=== PATIENT | male | born 1975 | race American Indian/Alaskan Native ===

== ENCOUNTER 2017-06-23 13:41 | Emergency (ER) | payer SELFPAY ==
[2017-06-23] MEDS ORDERED: ZOFRAN ODT PO ONE (16:13)
--- NOTE | 2017-06-23 16:13 | Emergency Department Report ---
Blank Doc - Documentation Documentation: Patient is a 42-year-old male presents with nausea and vomiting patient states he has not been able to take anything by mouth for last 3 days I will get blood work and I'll give patient Zofran and I'll reevaluate.
[2017-06-23 16:36] LABS: Basophils % (Auto) 0.6 % (0.0-1.8); Eosinophils # (Auto) 0.1 K/mm3 (0.0-0.4); Eosinophils % (Auto) 1.4 % (0.0-4.3); Hematocrit 46.5 % (35.5-45.6); Hemoglobin 15.3 gm/dl (11.8-15.2); Lymphocytes % (Auto) 20.6 % (13.4-35.0); Mean Corpuscular HGB Conc 33 % (32-34); Mean Corpuscular Hemoglobin 30 pg (28-32); Mean Corpuscular Volume 90 fl (84-94); Monocytes # (Auto) 0.6 K/mm3 (0.0-0.8); Monocytes % (Auto) 11.5 % (0.0-7.3); Platelet Count 301 K/mm3 (140-440); Red Blood Count 5.18 M/mm3 (3.65-5.03); Red Cell Distribution Width 13.3 % (13.2-15.2)
[2017-06-23 16:52] LABS: Alanine Aminotransferase 10 units/L (7-56); Albumin 3.3 g/dL (3.9-5); BUN/Creatinine Ratio 4; Blood Urea Nitrogen 3 mg/dL (9-20); Calcium 8.5 mg/dL (8.4-10.2); Hemolysis Index 34; Lipase 19 units/L (13-60)
[2017-06-23] MEDS ORDERED: DECADRON IM ONE (17:02)
[2017-06-23] MEDS ORDERED: PROVENTIL IH ONE (17:02)
--- NOTE | 2017-06-23 17:08 | Emergency Department Report ---
Minor Respiratory - HPI Chief Complaint: Upper Respiratory Infection Stated Complaint: FEVER/WEAKNESS Time Seen by Provider: 06/23/17 16:59 Duration: 2 Days Pain Location: Facial, Throat, Nose, Chest Severity: moderate Minor Respiratory: Yes Sore Throat, Yes Able to Tolerate Fluids, Yes Cough, No Rhinorrhea, No Ear Pain, No Sick Contacts, No Hemoptysis, No Chest Pain, No Shortness of Breath, No Fever ED Review of Systems ROS: Stated complaint: FEVER/WEAKNESS Other details as noted in HPI Constitutional: no symptoms reported, chills ENT: throat pain Respiratory: cough ED Past Medical Hx - Past Medical History Previous Medical History?: No - Surgical History Past Surgical History?: No - Social History Smoking Status: Current Every Day Smoker Substance Use Type: None - Medications Home Medications: Home Medications Medication Instructions Recorded Confirmed Last Taken Type Amoxicillin 500 mg PO BID #20 capsule 06/23/17 Unknown Rx Benzonatate [Tessalon Perles] 100 mg PO Q8HR PRN #20 capsule 06/23/17 Unknown Rx Fluticasone [Flonase] 1 spray NS QDAY #1 bottle 06/23/17 Unknown Rx predniSONE [Deltasone] 20 mg PO DAILY #5 tablet 06/23/17 Unknown Rx Minor Respiratory Exam - Exam General: Vital signs noted. No distress. Alert and acting appropriately. HEENT: Yes Pharyngeal Erythema, Yes Moist Mucous Membranes, Yes Frontal Tenderness, Yes Maxillary Tenderness, No Pharyngeal Exudates, No Rhinorrhea, No Conjuctival Injection Ear: Neither TM Bulge, Neither TM Erythema, Neither EAC Pain, Neither EAC Discharge Neck: Yes Supple, No Adenopathy Lungs: Yes Good Air Exchange, Yes Wheezes, Yes Cough, No Ronchi, No Stridor, No Labored Respirations, No Retractions, No Use of Accessory Muscles, No Other Abnormal Lung Sounds Heart: Yes Regular, No Murmur Abdomen: Yes Normal Bowel Sounds, No Tenderness, No Peritoneal Signs Skin: No Rash, No Edema Neurologic: Alert and oriented, no deficits. Musculoskeletal: Unremarkable. ED Course Vital Signs 06/23/17 14:00 Temperature 98.2 F Pulse Rate 99 H Respiratory 20 Rate Blood Pressure 124/92 O2 Sat by Pulse 98 Oximetry ED Medical Decision Making - Lab Data Result diagrams: 06/23/17 16:22 06/23/17 16:22 - Medical Decision Making SEE NOTE - Differential Diagnosis URTI Critical care attestation.: If time is entered above; I have spent that time in minutes in the direct care of this critically ill patient, excluding procedure time. ED Disposition Clinical Impression: URTI (acute upper respiratory infection), Sinusitis Disposition: TO HOME OR SELFCARE Is pt being admited?: No Does the pt Need Aspirin: No Condition: Stable Instructions: Sinusitis (ED), Upper Respiratory Infection (ED) Additional Instructions: REST HYDRATE WELL MEDS ORDERED TODAY MOTRIN OR TYLENOL FOR FEVER OR PAIN FOLLOW UP WITH PCP NEXT WEEK Referrals: PRIMARY CARE, [Primary Care Provider] - [facility] Days [facility] - [facility]-5 Days Time of Disposition: 17:05
[2017-06-23 17:43] VITALS: BP 140/90
== END 2017-06-23 17:35 | disposition home or self-care (01) ==
LOC: ED 13:41
DX: J06.9 Acute upper respiratory infection, unspecified (principal); J32.1 Chronic frontal sinusitis; J32.0 Chronic maxillary sinusitis; F17.200 Nicotine dependence, unspecified, uncomplicated
CPT/HCPCS: 36415; 80053; 83690; 85025; 96372; 99283; J1100; Q0162

== ENCOUNTER 2017-09-26 08:40 | Emergency (ER) | payer SELFPAY | END 2017-09-26 09:45 | disposition left against medical advice (07) | LOC: ED 08:40 | DX: M79.601 Pain in right arm (principal); Z53.21 Procedure and treatment not carried out due to patient leaving prior to being seen by health care provider ==

== ENCOUNTER 2018-12-31 03:36 | Emergency (ER) | payer SELFPAY ==
[2018-12-31 03:45] VITALS: BP 118/89
[2018-12-31 04:09] LABS: Basophils # (Auto) 0.1 K/mm3 (0.0-0.1); Basophils % (Auto) 0.7 % (0.0-1.8); Eosinophils % (Auto) 0.1 % (0.0-4.3); Hematocrit 44.4 % (35.5-45.6); Lymphocytes # (Auto) 2.2 K/mm3 (1.2-5.4); Lymphocytes % (Auto) 16.7 % (13.4-35.0); Mean Corpuscular HGB Conc 34 % (32-34); Mean Corpuscular Volume 90 fl (84-94); Monocytes # (Auto) 0.7 K/mm3 (0.0-0.8); Monocytes % (Auto) 5.2 % (0.0-7.3); Platelet Count 267 K/mm3 (140-440); Red Blood Count 4.92 M/mm3 (3.65-5.03); Red Cell Distribution Width 13.9 % (13.2-15.2)
[2018-12-31 04:54] LABS: Alanine Aminotransferase 79 units/L (7-56); Albumin 4.2 g/dL (3.9-5); BUN/Creatinine Ratio 7; Blood Urea Nitrogen 6 mg/dL (9-20); Calcium 8.9 mg/dL (8.4-10.2); Hemolysis Index 25
--- NOTE | 2018-12-31 07:54 | Emergency Department Report ---
ED General Adult HPI - General Chief complaint: Extremity Injury, Lower Stated complaint: PAIN IN RIGHT LEG Time Seen by Provider: 12/31/18 07:22 Source: patient Mode of arrival: Ambulatory Limitations: No Limitations - History of Present Illness Initial comments: This is a 43-year-old male with no prior medical history of any conditions are presents to ED complaining of right lateral lower leg pain 1 week. Patient states that he woke up one morning with a serrated female slight throbbing pain in his right lower leg. Patient states that he did not sustain any injuries or trauma to the leg. Patient denies prolonged standing or traveling. Patient states has been taken aspirin and Aleve for pain with no major relief. He denies fevers/chills/nausea vomiting, chest pain, shortness of breath. He denies taking any medications or having any allergies. He denies any difficulty walking ability to walk on loss of sensation - Related Data Previous Rx's Medication Instructions Recorded Last Taken Type Amoxicillin 500 mg PO BID #20 capsule 06/23/17 Unknown Rx Benzonatate [Tessalon Perles] 100 mg PO Q8HR PRN #20 capsule 06/23/17 Unknown Rx Fluticasone [Flonase] 1 spray NS QDAY #1 bottle 06/23/17 Unknown Rx predniSONE [Deltasone] 20 mg PO DAILY #5 tablet 06/23/17 Unknown Rx Ibuprofen [Motrin] 800 mg PO Q8HR #30 tablet 12/31/18 Unknown Rx methOCARBAMOL [Robaxin TAB] 500 mg PO BID #20 tab 12/31/18 Unknown Rx Allergies Allergy/AdvReac Type Severity Reaction Status Date / Time No Known Allergies Allergy Unverified 06/23/17 14:00 ED Review of Systems ROS: Stated complaint: PAIN IN RIGHT LEG Other details as noted in HPI Comment: All other systems reviewed and negative ED Past Medical Hx - Past Medical History Previous Medical History?: No - Surgical History Past Surgical History?: No - Social History Smoking Status: Current Every Day Smoker - Medications Home Medications: Home Medications Medication Instructions Recorded Confirmed Last Taken Type Amoxicillin 500 mg PO BID #20 capsule 06/23/17 Unknown Rx Benzonatate [Tessalon Perles] 100 mg PO Q8HR PRN #20 capsule 06/23/17 Unknown Rx Fluticasone [Flonase] 1 spray NS QDAY #1 bottle 06/23/17 Unknown Rx predniSONE [Deltasone] 20 mg PO DAILY #5 tablet 06/23/17 Unknown Rx Ibuprofen [Motrin] 800 mg PO Q8HR #30 tablet 12/31/18 Unknown Rx methOCARBAMOL [Robaxin TAB] 500 mg PO BID #20 tab 12/31/18 Unknown Rx ED Physical Exam - General Limitations: No Limitations General appearance: alert, in no apparent distress - Head Head exam: Present: atraumatic, normocephalic - Eye Eye exam: Present: normal appearance - ENT ENT exam: Present: mucous membranes moist - Neck Neck exam: Present: normal inspection - Respiratory Respiratory exam: Present: normal lung sounds bilaterally. Absent: respiratory distress - Cardiovascular Cardiovascular Exam: Present: regular rate, normal rhythm. Absent: systolic murmur, diastolic murmur, rubs, gallop - GI/Abdominal GI/Abdominal exam: Present: soft, normal bowel sounds - Rectal Rectal exam: Present: deferred - Extremities Exam Extremities exam: Present: normal inspection, full ROM, other (no old Alison, swelling, redness to the lower extremities bilaterally). Absent: tenderness (to palpation right calf, ankle or knee), joint swelling, calf tenderness - Back Exam Back exam: Present: normal inspection, full ROM - Neurological Exam Neurological exam: Present: alert, oriented X3 - Psychiatric Psychiatric exam: Present: normal affect, normal mood - Skin Skin exam: Present: warm, dry, intact, normal color. Absent: rash ED Course Vital Signs 12/31/18 03:43 Temperature 97.7 F Pulse Rate 112 H Respiratory 18 Rate Blood Pressure 118/89 O2 Sat by Pulse 97 Oximetry ED Medical Decision Making - Lab Data Result diagrams: 12/31/18 03:52 12/31/18 03:52 - Medical Decision Making 43-year-old male presents with a myalgia the lower leg. Negative D dimer. Labs within normal limits. Incidental finding for mildly elevated AST ALT and mild leukocytosis. Discussed this with the patient and discussed with him the need to possibly follow up with a head charger in the future. Patient denies abdominal pain or any abdominal complaints. Vital signs are normal patient is in no acute distress. discuss follow-up with primary care physician as well. Patient is ambulatory without any problems. There was no neurological deficit Critical care attestation.: If time is entered above; I have spent that time in minutes in the direct care of this critically ill patient, excluding procedure time. ED Disposition Clinical Impression: Myalgia, Muscle strain, lower leg Disposition: DC- TO HOME OR SELFCARE Is pt being admited?: No Does the pt Need Aspirin: No Condition: Stable Instructions: Musculoskeletal Pain (ED), Trigger Point Pain (ED) Additional Instructions: Make sure to follow up with the primary care physician as discussed. Take all your medications as you've been prescribed. If you have any worsening symptoms or develop new symptoms please return to ED immediately. Prescriptions: Ibuprofen [Motrin] 800 mg PO Q8HR #30 tablet methOCARBAMOL [Robaxin TAB] 500 mg PO BID #20 tab Referrals: [facility] MD AMADA [Primary Care Provider] - 3-5 Days [facility] [Outside] - 3-5 Days [facility] [Outside] - 3-5 Days JENNIFER FERNANDEZ MD [Staff Physician] - 3-5 Days Forms: Work/School Release Form Time of Disposition: 07:56
== END 2018-12-31 08:08 | disposition home or self-care (01) ==
LOC: ED 03:36
DX: S86.912A Strain of unspecified muscle(s) and tendon(s) at lower leg level, left leg, initial encounter (principal); F17.200 Nicotine dependence, unspecified, uncomplicated; Z79.899 Other long term (current) drug therapy; X58.XXXA Exposure to other specified factors, initial encounter; Y93.89 Activity, other specified; Y92.89 Other specified places as the place of occurrence of the external cause; Y99.8 Other external cause status
CPT/HCPCS: 36415; 80053; 85025; 85379

== ENCOUNTER 2019-04-03 05:31 | Emergency (ER) | payer SELFPAY ==
[2019-04-03 05:39] VITALS: BP 131/84
--- NOTE | 2019-04-03 08:18 | XRay Report ---
XR knee 3V RT INDICATION / CLINICAL INFORMATION: pain to right lateral. COMPARISON: None available. FINDINGS: BONES/JOINT(S): No acute fracture or subluxation. No significant degenerative changes. 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 There is also a small osteochondroma arising from the medial aspect of the distal fem oral diametaphysis without appreciable associated soft tissue mass. SOFT TISSUES: No significant abnormality. ADDITIONAL FINDINGS: None. Signer Name: Earl Lazo MD Signed: 04/03/2019 8:14 AM Workstation Name: [email or web address]
--- NOTE | 2019-04-03 09:19 | Emergency Department Report ---
ED Lower Extremity HPI - General Chief Complaint: Extremity Injury, Lower Stated Complaint: RT LEG PAIN Time Seen by Provider: 04/03/19 07:13 Source: patient Mode of arrival: Ambulatory Limitations: No Limitations - History of Present Illness Complaint: knee injury -: Gradual, Sudden Injury: Knee: Right Type of Injury: unknown Place: home Severity: mild Improves With: nothing Worsens With: movement, palpation Associated Symptoms: able to partially bear weight, ambulatory. denies: snap/pop sensation, swelling, numbness, tingling - Related Data Previous Rx's Medication Instructions Recorded Last Taken Type Amoxicillin 500 mg PO BID #20 capsule 06/23/17 Unknown Rx Benzonatate [Tessalon Perles] 100 mg PO Q8HR PRN #20 capsule 06/23/17 Unknown Rx Fluticasone [Flonase] 1 spray NS QDAY #1 bottle 06/23/17 Unknown Rx predniSONE [Deltasone] 20 mg PO DAILY #5 tablet 06/23/17 Unknown Rx Ibuprofen [Motrin] 800 mg PO Q8HR #30 tablet 12/31/18 Unknown Rx methOCARBAMOL [Robaxin TAB] 500 mg PO BID #20 tab 12/31/18 Unknown Rx predniSONE [Deltasone] 50 mg PO QDAY #7 tab 04/03/19 Unknown Rx Allergies Allergy/AdvReac Type Severity Reaction Status Date / Time No Known Allergies Allergy Unverified 06/23/17 14:00 ED Review of Systems ROS: Stated complaint: RT LEG PAIN Other details as noted in HPI Comment: All other systems reviewed and negative ED Past Medical Hx - Past Medical History Previous Medical History?: Yes - Surgical History Past Surgical History?: Yes - Social History Smoking Status: Never Smoker Substance Use Type: None - Medications Home Medications: Home Medications Medication Instructions Recorded Confirmed Last Taken Type Amoxicillin 500 mg PO BID #20 capsule 06/23/17 Unknown Rx Benzonatate [Tessalon Perles] 100 mg PO Q8HR PRN #20 capsule 06/23/17 Unknown Rx Fluticasone [Flonase] 1 spray NS QDAY #1 bottle 06/23/17 Unknown Rx predniSONE [Deltasone] 20 mg PO DAILY #5 tablet 06/23/17 Unknown Rx Ibuprofen [Motrin] 800 mg PO Q8HR #30 tablet 12/31/18 Unknown Rx methOCARBAMOL [Robaxin TAB] 500 mg PO BID #20 tab 12/31/18 Unknown Rx predniSONE [Deltasone] 50 mg PO QDAY #7 tab 04/03/19 Unknown Rx ED Physical Exam - General Limitations: No Limitations General appearance: alert, in no apparent distress - Head Head exam: Present: atraumatic, normocephalic - Eye Eye exam: Present: normal appearance, PERRL, EOMI Pupils: Present: normal accommodation - ENT ENT exam: Present: mucous membranes moist - Neck Neck exam: Present: normal inspection, full ROM - Respiratory Respiratory exam: Present: normal lung sounds bilaterally. Absent: respiratory distress - Cardiovascular Cardiovascular Exam: Present: regular rate, normal rhythm. Absent: systolic murmur, diastolic murmur, rubs, gallop - GI/Abdominal GI/Abdominal exam: Present: soft, normal bowel sounds. Absent: distended, tenderness, hyperactive bowel sounds, hypoactive bowel sounds, organomegaly - Rectal Rectal exam: Present: deferred - Extremities Exam Extremities exam: Present: normal inspection, full ROM, normal capillary refill. Absent: tenderness, joint swelling, calf tenderness - Expanded Lower Extremity Exam Right Knee exam: Present: full ROM, tenderness (tenderness along the lateral aspect of the knee joint is stable normal varus and valgus), full knee extension. Absent: laceration, ecchymosis, erythema, effusion, pain w/ pronation/supination, posterior draw sign, pain/laxity with valgus, pain/laxity with varus - Back Exam Back exam: Present: normal inspection. Absent: CVA tenderness (R), CVA tenderness (L) - Neurological Exam Neurological exam: Present: alert, oriented X3, CN II-XII intact - Psychiatric Psychiatric exam: Present: normal affect, normal mood - Skin Skin exam: Present: warm, dry, intact, normal color. Absent: rash ED Course Vital Signs 04/03/19 05:34 Temperature 98.2 F Pulse Rate 105 H Respiratory 18 Rate Blood Pressure 131/84 [Right] O2 Sat by Pulse 97 Oximetry ED Lower Extremity MDM - Radiology Data Radiology results: report reviewed [facility] [address] [place] [address] XRay Report Signed Patient: CHRIS RODRIGUEZ MR#: [id number] : 1975 Acct:[id number] Age/Sex: 44 / M ADM Date: 04/03/19 Loc: ED Attending Dr: Ordering Physician: LIBIA CALIX Date of Service: 04/03/19 Procedure(s): XR knee 3V RT Accession Number(s): [id number] cc: LIBIA CALIX Fluoro Time In Minutes: XR knee 3V RT INDICATION / CLINICAL INFORMATION: pain to right lateral. COMPARISON: None available. FINDINGS: BONES/JOINT(S): No acute fracture or subluxation. No significant degenerative changes. There is a bipartite patella. There is also a small osteochondroma arising from the medial aspect of the distal femoral diametaphysis without appreciable associated soft tissue mass. SOFT TISSUES: No significant abnormality. ADDITIONAL FINDINGS: None. Signer Name: Earl Lazo MD Signed: 04/03/2019 8:14 AM Workstation Name: [id number] Transcribed By: YOUNG Dictated By: Earl Lazo MD Electronically Authenticated By: Earl Lazo MD Signed Date/Time: 04/03/19813 DD/ 2 TD/TT: Critical care attestation.: If time is entered above; I have spent that time in minutes in the direct care of this critically ill patient, excluding procedure time. ED Disposition Clinical Impression: Knee pain Disposition: DC-01 TO HOME OR SELFCARE Is pt being admited?: No Does the pt Need Aspirin: No Condition: Stable Instructions: Arthralgia (ED) Additional Instructions: You can alternate Tylenol and Motrin every 4-6 hours to help control your pain. Please also rest, ice, and elevate your ankle to control your pain. Please follow up with your primary care physician as needed. If you do not have a primary doctor, you can call your insurance company to find one. If you do not have insurance, you can go to the finance/registration department for more assistance. Return to the Emergency Department if you experience worsening pain, numbness/tingling, change of color in your toes, or any other concerning symptoms. Prescriptions: predniSONE [Deltasone] 50 mg PO QDAY #7 tab Referrals: OSBALDO NARVAEZ MD [Primary Care Provider] - 3-5 Days JENNIFER FERNANDEZ MD [Staff Physician] - 2-3 Days
== END 2019-04-03 09:37 | disposition home or self-care (01) ==
LOC: ED 05:31
DX: M25.561 Pain in right knee (principal); Z79.1 Long term (current) use of non-steroidal anti-inflammatories (NSAID); Z79.899 Other long term (current) drug therapy
CPT/HCPCS: 99283

== ENCOUNTER 2019-10-30 09:00 | Emergency (ER) | payer SELFPAY ==
[2019-10-30 09:04] VITALS: BP 121/75
--- NOTE | 2019-10-30 11:29 | Emergency Department Report ---
Abscess Boil HPI - HPI Chief Complaint: Skin/Abscess/Foreign Body Stated Complaint: BOIL OR SPIDER BITE Time Seen by Provider: 10/30/19 11:07 Duration: 5 Days Location: Abdomen Severity: Mild History: Yes Pain, Yes Purulent Drainage, No Fever, No Numbness, No Foreign Bod y, No Previous History, No Insect Bite HPI: 44-year-old male presents to the ER today complaining of abscess to his left abdominal wall area. Patient states that 5 days ago he woke up with a "knot" that he noticed to his left abdomen. He does not recall being bit or any kind injury to the abdomen. he states that over time he started noticing pus to the "knot" and therefore squeezed it about 3 days ago. He states that when he squeezed it "green stuff" drained out. He states that since he squeezed it, the swelling has improved, and it is still draining but mildly. He states that it is still painful and still "hard" but does admit that it is not as painful as when it first started. He denies similar symptoms in the past. He denies any known history of MRSA. Home Medications: Previous Rx's Medication Instructions Recorded Last Taken Type Ibuprofen [Motrin 800 MG tab] 800 mg PO Q8HR #30 tablet 10/30/19 Unknown Rx Sulfamethoxazole/Trimethoprim 1 each PO BID #14 tablet 10/30/19 Unknown Rx [Bactrim DS TAB] Allergies/Adverse Reactions: Allergies Allergy/AdvReac Type Severity Reaction Status Date / Time No Known Allergies Allergy Unverified 06/23/17 14:00 ED Review of Systems ROS: Stated complaint: BOIL OR SPIDER BITE Other details as noted in HPI Comment: All other systems reviewed and negative Skin: rash (abscess) ED Past Medical Hx - Past Medical History Previous Medical History?: No - Surgical History Past Surgical History?: No - Social History Smoking Status: Current Every Day Smoker Substance Use Type: None - Medications Home Medications: Home Medications Medication Instructions Recorded Confirmed Last Taken Type Ibuprofen [Motrin 800 MG tab] 800 mg PO Q8HR #30 tablet 10/30/19 Unknown Rx Sulfamethoxazole/Trimethoprim 1 each PO BID #14 tablet 10/30/19 Unknown Rx [Bactrim DS TAB] ED Abscess Boil Physical Exam - Exam General: Vital signs noted. No distress. Alert and acting appropriately. Front/Back of Body, Lg (Color): 1 - small indurated area about the size of quarter. there is small central opening with scant amt clear yellow drainage. No apparent erythema or cellulitis. No fluctuance. + mild ttp. Size: 2 cm Exam: Yes Tenderness, Yes Normal Neurologic Exam, Yes Normal Circulation, No Fluctuance, No Surrounding Cellulites/Erythema, No Lymphangitis, No Crepitation, No Heart Murmur ED Course Vital Signs 10/30/19 09:01 Temperature 99.0 F Pulse Rate 71 Respiratory 18 Rate Blood Pressure 121/75 O2 Sat by Pulse 99 Oximetry Critical care attestation.: If time is entered above; I have spent that time in minutes in the direct care of this critically ill patient, excluding procedure time. ED Medical Decision Making - Medical Decision Making 1132 --patient with an small abscess to his left abdominal wall that is already draining. No further I&D indicated at this time. Discussed wound care with patient. He will be started on antibiotics. Patient is well-appearing, nontoxic, does not appear to be in any acute distress, his vital signs are stable. Patient is stable for discharge. ED Disposition Clinical Impression: Abscess of abdominal wall Disposition: - TO HOME OR SELFCARE Is pt being admited?: No Does the pt Need Aspirin: No Condition: Stable Instructions: Abscess (ED) Additional Instructions: Keep wound clean daily with soap and water. Do not use any more peroxide. You may apply a small amount of Neosporin after cleaning. Take and complete the antibiotics prescribed to you. Recommend close follow-up with primary care doctor. If anything changes or worsens return to the ER. Prescriptions: Sulfamethoxazole/Trimethoprim [Bactrim DS TAB] 1 each PO BID #14 tablet Ibuprofen [Motrin 800 MG tab] 800 mg PO Q8HR #30 tablet Referrals: JULIA ARMSTRONG MD [Staff Physician] - 3-5 Days Time of Disposition: 11:31
== END 2019-10-30 11:38 | disposition home or self-care (01) ==
LOC: ED 09:00
DX: L02.211 Cutaneous abscess of abdominal wall (principal); F17.200 Nicotine dependence, unspecified, uncomplicated; Z79.899 Other long term (current) drug therapy
CPT/HCPCS: 99282